=== PATIENT | female | born 1970 | race Caucasian/White ===

== ENCOUNTER 2021-09-03 08:38 | Outpatient (CLI) | payer BC, SELFPAY | END 2021-09-03 08:39 | disposition home or self-care (01) | PROVIDERS: PCP Family Medicine; Visit Provider Urology | DX: N39.3 Stress incontinence (female) (male) (principal); Z01.818 Encounter for other preprocedural examination | CPT/HCPCS: 87086; 87088 ==

== ENCOUNTER → 2021-09-04 02:53 | Outpatient (CLI) | payer BC, SELFPAY ==
[2021-09-04 20:04] LABS: SARS-CoV-2 RNA PCR Negative
== END ==
PROVIDERS: PCP Family Medicine; Visit Provider Urology
DX: Z01.812 Encounter for preprocedural laboratory examination (principal); Z20.822 Contact with and (suspected) exposure to COVID-19
CPT/HCPCS: C9803; U0003; U0005

== ENCOUNTER 2021-09-07 00:07 | Day surgery (SDC) | payer BC, SELFPAY ==
[2021-08-27 15:07] VITALS: BMI 27.4
--- NOTE | 2021-08-27 15:28 | PC.NURSE ---
Report to the Outpatient Waiting Room, entrance under the green pavilion located off [facility], at time 6:00 on date 09/07/21. OR Time: 7:30. - You and your visitor will be asked a series of questions to screen for COVID 19 for your protection. - A mask is required within the hospital. - Only one visitor is allowed at this time. Patient visitors will be guided where to wait when not with patient. Preoperative COVID Testing Requirements: No COVID Test needed if: (proof is required; if not received patient will have Rapid Test prior to entry) - Patient has received COVID Vaccine at least 14 days prior to procedure date or - Patient has positive COVID test result within last 90 days of surgery date. COVID Test needed if above criteria is not met If not COVID vaccinated a COVID test must be conducted within 72 hours of surgery and patient is asked to isolate self from time of testing until procedure. You will go to the [email or web address] for your COVID testing. The [facility] is located at the corner of [address] [facility]. COVID TEST 09/04 AT 9:30 You will only be called if COVID results are positive and your surgeon may reschedule your elective surgery date. Patients may have clear liquids (water, carbonated beverages, clear teas, apple juice) until 3 hours prior to surgery with a maximum of 20 ounces. - No food from midnight until time of surgery - Infants may have breast milk until 4 hours before surgery, infant formula 6 hours prior to surgery. - Children will be allowed to drink immediately following surgery. If applicable, please bring a bottle or sippy cup to assist with drinking. Juice, water, soda, and popsicles are readily available. For infants on formula, please bring formula the day of surgery. Pacifiers are allowed. Take the following medications with a SIP of water the morning of surgery: CELEXA Medications to discontinue per physician: MELOXICAM Date to take last dose: PER DR. MILLS Please no make-up, nail kiswahili, hairspray, perfume, deodorant, or body powder the day of surgery. No jewelry (including any body piercings) or valuables the day of surgery, leave them at home. Please take a shower or bath the night before, or the morning of, surgery with an antibacterial soap. Wear comfortable, loose fitting clothing. Children are encouraged to wear pajamas. - Jewelry must be removed prior to entering the operating room. Rings and piercings that are not removed may be cut off. - The hospital will not accept responsibility for valuables. - Please leave all valuables, including medications, at home the day of surgery. If you are going home after surgery, a licensed delivery motorcycle driver must drive you home. - NO public transportation without another adult. - We recommend that an adult stay with you for 24 hours following discharge. - We also recommend that you do not drive, make important decision, drink alcoholic beverages, or take any drugs that were not prescribed by your health care provider for at least 24 hours after your discharge time. For Pediatric surgeries, we recommend two adults accompany the child home (only one inside the building at this time). Follow any additional instructions given to you from your surgeon. Telephone instructions given to CRISTIANA MARIE and asked if any additional questions and then verbalized understanding. Patient advised to call surgeon office or pre surgery nurse liaison [phone] if any additional questions.
[2021-09-07] VITALS (7 sets, daily range): BP systolic 113–145; BP diastolic 69–89; PULSE 58–68; RESP 12–14; TEMP 35.8–36.3; O2SAT 96–100
[2021-09-07] MEDS: LACTATED RINGERS 1,000 ML 30 ML IV CONT ×2 (06:30→09:16)
--- NOTE | 2021-09-07 06:51 | P.PNAN_ITS ---
Anes - Initial Pre Proc Eval Procedure: Operation Date: 09/07/21 07:30 Proposed Procedures p Cystocele Repair, Rectocele Repair, - Butch Mixon MD s Urethral Sling - Butch Mixon MD Date/Time: 09/07/21 06:51 Surgeon: Butch Mixon MD Pre Op Diagnosis: cystocele rectocele, stress incontinence Patient Data Age: 51 Gender: F Height: 1.68 m Weight: 79.6 kg Last Vital Signs Temp 35.8 C L 09/07/21 06:31 Pulse 63 09/07/21 06:31 BP 120/75 09/07/21 06:31 Pulse Ox 96 09/07/21 06:31 Allergies Allergy/AdvReac Type Severity Reaction Status Date / Time amoxicillin Allergy Rash Verified 09/07/21 06:12 nickel Allergy Rash Verified 09/07/21 06:12 Home Medications Medication Instructions Recorded Confirmed Type citalopram [Celexa] 40 mg PO DAILY 08/27/21 09/07/21 History dextroamphetamine-amphetamine 15 mg PO DAILY 08/27/21 09/07/21 History [Adderall] meloxicam 15 mg PO DAILY 08/27/21 09/07/21 History Patient hx anesthesia problems: post op nausea/vomiting Family hx anesthesia problems: none Results Review: All pre-operative results and documents have been reviewed as part of the pre-operative evaluation. [facility] Past Medical History Medical History ADD (attention deficit disorder) Anxiety RLS (restless legs syndrome) Social History Social History Years smoked: 30 Smoking status: Current every day smoker Tobacco type: cigarettes Alcohol intake: current Alcohol use details: 12/MONTH Substance use: never Substance use type: does not use Living arrangements: with family Spiritual care concerns: No Anes - Eval Final PreProcedure Day of Procedure 09/07/21 06:51 Patient weight: overweight Heart: regular rate and rhythm Lungs: decreased breath sounds Airway: Mallampati scale class II Neurological: alert and oriented Last oral intake: >/= 8 hours ASA classification: III Emergent: no Anesthetic plan: proceed Anesthesia type and monitoring: general LMA and standard monitoring Results Review: All pre-operative results and documents have been reviewed as part of the pre-operative evaluation. Informed Consent: The patient's anesthetic plan and its attendant risks and benefits were discussed with the patient/family/POA. Questions were solicited and answers provided to the satisfaction of the patient/family/POA.
[2021-09-07] MEDS: SCOPOLAMINE 1.5 MG PATCH TRANSDERM (07:18)
--- NOTE | 2021-09-07 07:23 | WPDHPUPDATE1 ---
History and Physical Update Update Date/Time: 09/07/21 07:23 History and Physical has been reviewed, including an updated exam of the patient. There are NO changes in the patient's condition. Risks, benefits, and alternatives have been discussed and questions answered. Patient agrees to proceed with procedure.
--- NOTE | 2021-09-07 07:23 | PM.IMHP ---
H&P: HPI History of Present Illness Date/Time: 09/07/21 07:23 Pelvic organ prolapse and ADRIANNA Chief Complaint: POP/ADRIANNA Review of Systems Review of Systems: All systems reviewed & are unremarkable except as noted in HPI and below PMFSH Past Medical History Medical History ADD (attention deficit disorder) Anxiety RLS (restless legs syndrome) Social History Social History Years smoked: 30 Smoking status: Current every day smoker Tobacco type: cigarettes Alcohol intake: current Alcohol use details: 12/MONTH Substance use: never Substance use type: does not use Living arrangements: with family Spiritual care concerns: No Meds Home Medications and Allergies Home Medications Medication Instructions Recorded Confirmed Type citalopram [Celexa] 40 mg PO DAILY 08/27/21 09/07/21 History dextroamphetamine-amphetamine 15 mg PO DAILY 08/27/21 09/07/21 History [Adderall] meloxicam 15 mg PO DAILY 08/27/21 09/07/21 History Allergies Allergy/AdvReac Type Severity Reaction Status Date / Time amoxicillin Allergy Rash Verified 09/07/21 06:12 nickel Allergy Rash Verified 09/07/21 06:12 Vital Signs Vital Signs - 24 hr 09/07/21 06:31 Temperature 96.4 F L Pulse Rate 63 Blood Pressure 120/75 Pulse Oximetry 96 Exam Narrative: urethral hypermobility rectocele small cystocele Assessment and Plan Assessment and plan (1) Rectocele: Code(s): N81.6 - Rectocele Status: Acute Assessment and Plan: rectocele repair (2) Cystocele: Status: Acute Assessment and Plan: possible cystocele repair (3) ADRIANNA (stress urinary incontinence, female): Code(s): N39.3 - Stress incontinence (female) (male) Status: Acute Assessment and Plan: urethral sling
[2021-09-07] MEDS: ceFAZolin 2 GM/D5W 50 ML 2 GM/50 ML BAG IVPB (07:36)
--- NOTE | 2021-09-07 08:39 | P.OP_ITS ---
Procedure Note - Detailed Date of Procedure 09/07/21 Pre-op Diagnosis cystocele rectocele, stress incontinence Post-op Diagnosis same Procedure Performed Rectocele repair mid urethral sling cystoscopy Surgeon Butch Mixon MD Indications This is a female with confirm stress urinary incontinence. She desires surgical correction. She understands the risks of bleeding, infection, injury to the urinary tract, vaginal mesh extrusion, urinary tract mesh erosion, obstructive voiding requiring a secondary procedure, hip and leg pain, dyspareunia, inability to improve overactive bladder symptoms. She also has pelvic organ prolapse which is symptomatic. Her prolapse is mostly rectocele. She has a very minor cystocele. She presents today for rectocele repair. Possible cystocele repair. She understands risks of bleeding, infection, recurrence, dyspareunia, damage to surrounding organs. She agrees to proceed. Description of Procedure She was correctly identified. Informed consent obtained. She was brought the operating room. She was given appropriate anesthesia. She was given appropriate perioperative antibiotics. A time-out performed. Placed a [place] retractor. I placed a Alvares catheter. I examined a cystocele. She had a very mild amount a cystocele. I decided that this did not require a cystocele repair. She had a rectocele to the introitus. I grasped the rectocele with Allis clamps. I infiltrated subcutaneous tissues. I made a midline vaginal incision. I dissected the mucosa off the underlying fascial structures out laterally and towards the apex. I then performed plication rectocele repair with 0 Vicryl suture. This resulted in complete reduction of the rectocele. I then trimmed minimal excess patchy mucosa. I closed the vaginal mucosa with a running 2-0 Vicryl suture. There was excellent reduction of the rectocele. I marked out the site of the inner thigh incisions. I anesthetized the skin and made those incisions. I anesthetized the anterior vaginal wall over the mid urethra. I made a 1 cm incision. I dissected out laterally taking great care not to injure the refilled vaginal wall. I passed the helical trocars. First on the left. Then on the right. I did this from the thigh incision towards the vaginal incision. The sling was connected to the trocars and brought out through the thigh incision. I tensioned the sling appropriately. I cut and the plastic sheaths. I then closed the incision with 2 0 Vicryl. On cystoscopy there is no tumors or surgical artifact. There was no surgical artifact in the urethra. I cut the excess sling material. Close incisions with glue. She was awakened and transferred to the PACU in stable condition. Implants Urethral sling Drains No Packing No Pathology none sent Complications No immediate complications Condition stable Disposition PACU
[2021-09-07] MEDS: oxyCODONE HCL (*CRX) 5 MG TAB IR PO (09:48)
== END 2021-09-07 10:15 | disposition home or self-care (01) ==
PROVIDERS: PCP Family Medicine; Visit Provider Urology
PROC: (CPT 57240; principal; 2021-09-07 07:30)
PROC: (CPT 57250; 2021-09-07 07:30)
DX: N81.6 Rectocele (principal); N81.10 Cystocele, unspecified; N39.3 Stress incontinence (female) (male); F98.8 Other specified behavioral and emotional disorders with onset usually occurring in childhood and adolescence; G25.81 Restless legs syndrome; F41.9 Anxiety disorder, unspecified; F17.210 Nicotine dependence, cigarettes, uncomplicated
CPT/HCPCS: 57250; 57288; A9270; C1771; J0690; J1100; J2250; J2405; J2704; J3010; J7030; J7120